=== PATIENT | male | born 2000 | race Caucasian/White ===

== ENCOUNTER 2023-11-13 13:41 | Emergency (ER) | payer OTHER ==
[~2023-11-13] VITALS: Ht 170.2 cm; Wt 72.5 kg
[2023-11-13] MEDS ORDERED: LORTAB 5/3255 MG PO (15:24)
[2023-11-13] MEDS ORDERED: NAPROXEN500 MG PO (15:24)
[2023-11-13 15:39] VITALS: BP 128/74
== END 2023-11-13 15:45 | disposition home or self-care (01) | DRG 563 ==
LOC: ED 13:41
PROC: 0RSMXZZ Reposition Left Elbow Joint, External Approach (ICD-10-PCS; principal; 2023-11-13)
DX: S53.005A Unspecified dislocation of left radial head, initial encounter (principal); V86.56XA Driver of dirt bike or motor/cross bike injured in nontraffic accident, initial encounter; Y92.009 Unspecified place in unspecified non-institutional (private) residence as the place of occurrence of the external cause